=== PATIENT | male | born 1990 ===

== ENCOUNTER 2020-12-28 06:00 | Outpatient (RCR) | payer MEDICARE, MEDICAID, SELFPAY | END 2021-01-10 23:59 | disposition home or self-care (01) | LOC: GST 06:00 | PROVIDERS: Referring Provider Nurse Practitioner Family; Visit Provider Nurse Practitioner Family | DX: F98.5 Adult onset fluency disorder (principal) | CPT/HCPCS: 92521 ==

== ENCOUNTER 2021-01-11 06:00 | Outpatient (RCR) | payer MEDICARE, MEDICAID, SELFPAY | END 2021-02-09 23:59 | disposition home or self-care (01) | LOC: GST 06:00 | PROVIDERS: Referring Provider Nurse Practitioner Family; Visit Provider Nurse Practitioner Family | DX: F98.5 Adult onset fluency disorder (principal) | CPT/HCPCS: 92507 ==

== ENCOUNTER 2021-02-10 06:00 | Outpatient (RCR) | payer MEDICARE, MEDICAID, SELFPAY | END 2021-03-12 23:59 | disposition home or self-care (01) | LOC: GST 06:00 | PROVIDERS: Referring Provider Nurse Practitioner Family; Visit Provider Nurse Practitioner Family | DX: F98.5 Adult onset fluency disorder (principal) | CPT/HCPCS: 92507 ==

== ENCOUNTER 2021-03-13 06:00 | Outpatient (RCR) | payer MEDICARE, MEDICAID, SELFPAY | END 2021-04-12 23:59 | disposition home or self-care (01) | LOC: GST 06:00 | PROVIDERS: Referring Provider Nurse Practitioner Family; Visit Provider Nurse Practitioner Family | DX: F98.5 Adult onset fluency disorder (principal) | CPT/HCPCS: 92507 ==

== ENCOUNTER 2021-04-13 06:00 | Outpatient (RCR) | payer MEDICARE, MEDICAID, SELFPAY | END 2021-05-12 23:59 | disposition home or self-care (01) | LOC: GST 06:00 | PROVIDERS: Referring Provider Nurse Practitioner Family; Visit Provider Nurse Practitioner Family | DX: F98.5 Adult onset fluency disorder (principal) | CPT/HCPCS: 92507 ==

== ENCOUNTER 2021-05-13 06:00 | Outpatient (RCR) | payer MEDICARE, MEDICAID, SELFPAY | END 2021-06-12 23:59 | disposition home or self-care (01) | LOC: GST 06:00 | PROVIDERS: Visit Provider Nurse Practitioner Family | DX: F98.5 Adult onset fluency disorder (principal) | CPT/HCPCS: 92507 ==